=== PATIENT | male | born 1965 | race African-American/Black ===

== ENCOUNTER 2019-06-03 10:24 | Outpatient (CLI) | payer OTHER ==
[2019-06-03 12:09] LABS: #Basophils 0.1 thou/uL (0.0-0.2); #Eosinphils 0.1 thou/uL (0.0-0.7); #Lymphocytes 2.6 thou/uL (1.20-3.40); #Monocytes 0.5 thou/uL (0.11-0.59); #Neutrophils 2.9 thou/uL (1.40-6.50); %Basophils 1.1 % (0.0-1.0); %Eosinophils 0.9 % (0.0-10.0); %Monocytes 8.5 % (0.0-10.0); %Neutrophils 46.5 % (42.0-75.0); Hemoglobin 13.7 g/dL (14.0-18.0); MDiff Complete? YES; Mean Corpuscular HGB CONC 30.7 g/dL (32.0-36.0); Mean Corpuscular Hemoglobin 23.1 pg (27.0-31.0); Microcytosis SLIGHT = 6-15 cells (100X) (0-5/hpf); Platelet Count 205 thou/uL (130-400); Platelet Morphology Comment Appears Adequate; Red Blood Cell (RBC) Count 5.94 mill/uL (4.70-6.10); White Blood Cell (WBC) Count 6.2 thou/uL (4.8-10.8)
--- NOTE | 2019-06-03 16:59 | EKG ---
Test Reason : Blood Pressure : / mmHG Vent. Rate : 049 BPM Atrial Rate : 049 BPM P-R Int : 186 ms QRS Dur : 088 ms QT Int : 424 ms P-R-T Axes : 055 056 015 degrees QTc Int : 383 ms Marked sinus bradycardia Abnormal ECG When compared with ECG of 27-APR-2014 16:50, No significant change was found Confirmed by DR. Tejal GARDNER ([id number]) on 06/03/2019 4:59:38 PM Referred By: NAYAN Confirmed By:DR. Tejal GARDNER
== END 2019-06-03 10:25 | disposition home or self-care (01) ==
LOC: LABBT 10:24
PROVIDERS: ATTEND Orthopaedic Surgery Hand Surgery
DX: Z01.818 Encounter for other preprocedural examination (principal); S60.551A Superficial foreign body of right hand, initial encounter
CPT/HCPCS: 85025; 93005; 93010